=== PATIENT | female | born 1950 | race Caucasian/White ===

== ENCOUNTER 2021-04-18 12:56 | Outpatient (CLI) | payer OTHER | END 2021-04-18 13:09 | disposition home or self-care (01) | LOC: SONOGRAMA 12:56 | PROVIDERS: ATTEND Surgery | DX: N60.11 Diffuse cystic mastopathy of right breast (principal); N60.12 Diffuse cystic mastopathy of left breast ==

== ENCOUNTER 2023-11-26 07:41 | Outpatient (CLI) | payer OTHER | END 2023-11-26 07:56 | disposition home or self-care (01) | LOC: TOM 07:41 | PROVIDERS: ATTEND Internal Medicine Gastroenterology | DX: R19.5 Other fecal abnormalities (principal); K13.5 Oral submucous fibrosis ==

== ENCOUNTER → 2023-11-30 07:41 | Outpatient (CLI) | payer OTHER | END | disposition home or self-care (01) | LOC: TOM 07:41 | PROVIDERS: ATTEND Surgery | DX: R10.10 Upper abdominal pain, unspecified (principal) ==

== ENCOUNTER 2023-12-25 10:37 | Outpatient (CLI) | payer OTHER | END 2023-12-25 10:49 | disposition home or self-care (01) | LOC: MAMO-SONO 10:37 | PROVIDERS: ATTEND General Practice | DX: N64.4 Mastodynia (principal); Z12.31 Encounter for screening mammogram for malignant neoplasm of breast ==